=== PATIENT | female | born 1970 | race Hispanic/Latino ===

== ENCOUNTER 2018-12-03 21:02 | Emergency (ER) | payer OTHER ==
[~2018-12-03 21:02] MED LIST: HYDROCODONE PO; OLME1TAB28 PO
[2018-12-03 21:23] LABS: BASOPHILS % (AUTO) 0.7 % (0.0-5.0); EOSINOPHILS % (AUTO) 3.4 % (0.0-8.0); HEMATOCRIT 40.8 % (36-48); LYMPHOCYTES % (AUTO) 30.4 % (21.0-51.0); MEAN CORPUSCULAR HEMOGLOBIN 28.7 pg (27.0-33.0); MEAN CORPUSCULAR VOLUME 87.1 fL (79-99); MONOCYTES % (AUTO) 4.5 % (3.0-13.0); PLATELET COUNT (AUTO) 293 K/uL (130-400); RED BLOOD CELL COUNT(AUTO) 4.68 MIL/uL (4.00-5.50); RED CELL DISTRIBUTION WIDTH 13.3 % (11.0-15.5)
[2018-12-03 21:33] LABS: CREATININE 1.3 mg/dL (0.5-1.5); POTASSIUM 3.3 mmol/L (3.5-5.1)
[2018-12-03] MEDS ORDERED: DiphenhydrAMINE HCL 50 MG/ML VIAL ONE (21:34)
[2018-12-03] MEDS ORDERED: ASPIRIN 325 MG TABLET ONE (21:34)
[2018-12-03 21:40] LABS: BILIRUBIN,TOTAL 0.3 mg/dL (0.2-1.0); TOTAL PROTEIN, SERUM 7.6 g/dL (6.0-8.3)
[2018-12-03] MEDS ORDERED: SODIUM CHLORIDE 0.9% 1000ML 1,000 ML IV ONE (22:48)
[2018-12-04 00:58] LABS: APPEARANCE,URINE Clear (CLEAR); BILIRUBIN,URINE Negative (NEGATIVE); COLOR,URINE Yellow (YELLOW); GLUCOSE, URINE (UA) Negative (NEGATIVE); KETONES,URINE Trace mg/dL (NEGATIVE); LEUKOCYTE ESTERASE ,URINE Trace (NEGATIVE); NITRATE,URINE Negative (NEGATIVE); OCCULT BLOOD,URINE Nonhemolyzed Trace (NEGATIVE); PROTEIN,URINE Negative (NEGATIVE)
[2018-12-04 01:01] LABS: HCG,QUAL RESULT NEGATIVE (NEGATIVE)
[2018-12-04 01:11] LABS: BACTERIA,URINE Few /HPF (None Seen); RBC,URINE 0-1 /HPF (0-1)
[2018-12-04 01:12] LABS: MUCUS,URINE Moderate LPF (None Seen); SQUAMOUS EPITHELIAL CELL,UR 0-2 /HPF (0-2)
[2018-12-04] MEDS ORDERED: IOHEXOL-350 75 ML VIAL IV ONE (01:26)
[2018-12-04 01:34] LABS: AMPHET/METH SCREEN,URINE NEGATIVE (NEGATIVE); BARBITURATE SCREEN, URINE NEGATIVE (NEGATIVE); BENZODIAZEPINES SCREEN,URINE NEGATIVE (NEGATIVE); CANNABINOID SCREEN,URINE POSITIVE (NEGATIVE); COCAINE SCREEN,URINE POSITIVE (NEGATIVE); OPIATE SCREEN,URINE NEGATIVE (NEGATIVE); PHENCYCLIDINE SCREEN,URINE NEGATIVE (NEGATIVE)
== END 2018-12-04 02:20 | disposition home or self-care (01) ==
LOC: EDH 21:02
DX: R07.89 Other chest pain (principal); R06.4 Hyperventilation; R42 Dizziness and giddiness; I10 Essential (primary) hypertension; Z90.710 Acquired absence of both cervix and uterus
CPT/HCPCS: 36415; 71046; 71275; 80053; 80305; 81001; 81025; 82550; 84484 ×2; 85025; 85378; 93005 ×2; 96361; 96374; 99285; J1200; J7030; Q9967

== ENCOUNTER 2023-06-30 22:38 | Inpatient (IN) | payer OTHER ==
[~2023-06-30] VITALS: Ht 152.4 cm; Wt 63.9 kg
[~2023-06-30 22:38] MED LIST changes: -OLME1TAB28 PO; +[UNRECOGNIZED DRUG - CODE] PO
[2023-06-30 23:06] LABS: BASOPHILS # (AUTO) 0.02 K/uL (0.00-0.20); BASOPHILS % (AUTO) 0.2 % (0.0-5.0); EOSINOPHILS # (AUTO) 0.16 K/uL (0.00-0.70); EOSINOPHILS % (AUTO) 1.5 % (0.0-8.0); HEMATOCRIT 38.5 % (36-48); IMMATURE GRANULOCYTE ABSOLUTE 0.04 K/uL (0-1); LYMPHOCYTES # (AUTO) 2.4 K/uL (1.0-4.8); MEAN CORPUSCULAR HEMOGLOBIN 27.7 pg (27.0-33.0); MEAN CORPUSCULAR HGB CONC 33.5 g/dL (32.0-36.0); MEAN CORPUSCULAR VOLUME 82.6 fL (79-99); MONOCYTES # (AUTO) 0.5 K/uL (0.1-1.0); MONOCYTES % (AUTO) 4.3 % (3.0-13.0); NEUTROPHILS # (AUTO) 7.7 K/uL (1.8-7.7); NEUTROPHILS % (AUTO) 71.6 % (40.0-77.0); PLATELET COUNT (AUTO) 344 K/uL (130-400); RED BLOOD CELL COUNT(AUTO) 4.66 MIL/uL (4.00-5.50); RED CELL DISTRIBUTION WIDTH 12.9 % (11.0-15.5); WHITE BLOOD COUNT (AUTO) 10.7 K/uL (4.8-10.8)
[2023-06-30] MEDS: PANTOPRAZOLE 40 MG/VIAL IVP ONE (23:08)
[2023-06-30] MEDS: ONDANSETRON 4MG INJ IVP ONE (23:08)
[2023-06-30] MEDS: MORPHINE 2 MG SYG IVP ONE (23:08)
[2023-06-30] MEDS: KETOROLAC 30MG VIAL (30MG/ML) IVP ONE (23:08)
[2023-06-30] MEDS: 0.9%NACL 1000ML 1,000 ML IV ONE (23:08)
[2023-06-30] MEDS: ASPIRIN 325MG TAB PO ONE (23:09)
[2023-06-30] MEDS: DICYCLOMINE 20MG (10MG/ML) AMP IM ONE (23:09)
[2023-06-30 23:34] LABS: B-TYPE NATRIURETIC PEPTIDE 9 pg/mL (0-100)
[2023-06-30 23:41] LABS: ALBUMIN 3.5 g/dL (3.5-5.0); BILIRUBIN,TOTAL 0.3 mg/dL (0.2-1.0); CREATININE 0.9 mg/dL (0.5-1.5); MAGNESIUM 1.7 mg/dL (1.80-2.40); TOTAL PROTEIN, SERUM 7.7 g/dL (6.0-8.3)
[2023-06-30 23:42] LABS: POTASSIUM 2.9 mmol/L (3.5-5.1)
[2023-06-30] MEDS ORDERED: IOHEXOL-350 75 ML VIAL IV ONE (23:46)
[2023-06-30] MEDS: ZOSYN 3.375GM +NS 50ML IV SCH (23:50)
[2023-07-01] VITALS (7 sets, daily range): BP systolic 149–190; BP diastolic 91–114; PULSE 58–88; RESP 16–18; O2SAT 99
[2023-07-01] MEDS: POTASSIUM BICARB/CIT AC 25 MEQ TABLET.EFF PO ONE (00:21)
[2023-07-01] MEDS: KETOROLAC 15MG/ML VIAL (15MG/ML) IV ONE (00:21)
[2023-07-01] MEDS: MORPHINE 2 MG SYG IVP ONE (00:21)
[2023-07-01 00:41] LABS: APPEARANCE,URINE CLOUDY (CLEAR); BILIRUBIN,URINE NEGATIVE (NEGATIVE); COLOR,URINE LIGHT-YELLOW (YELLOW); GLUCOSE, URINE (UA) NEGATIVE (NEGATIVE); KETONES,URINE 5 mg/dL (NEGATIVE); LEUKOCYTE ESTERASE ,URINE NEGATIVE Leu/uL (NEGATIVE); NITRATE,URINE NEGATIVE (NEGATIVE); PH,URINE 8.5 (5.0-8.0); PROTEIN,URINE NEGATIVE (NEGATIVE); UROBILINOGEN,URINE 0.2 mg/dL (0.2-1.0)
[2023-07-01 00:45] LABS: ADD UA MICROSCOPIC YES; HCG,QUALITATIVE URINE NEGATIVE (NEGATIVE)
[2023-07-01 00:48] LABS: BACTERIA,URINE RARE /HPF (None Seen); MUCUS,URINE RARE LPF (None Seen); SQUAMOUS EPITHELIAL CELL,UR RARE /HPF (0-2); WBC,URINE 0-1 /HPF (0-1)
[2023-07-01 00:49] LABS: AMPHET/METH SCREEN,URINE NEGATIVE (NEGATIVE); BARBITURATE SCREEN, URINE NEGATIVE (NEGATIVE); BENZODIAZEPINES SCREEN,URINE NEGATIVE (NEGATIVE); CANNABINOID SCREEN,URINE POSITIVE (NEGATIVE); COCAINE SCREEN,URINE POSITIVE (NEGATIVE); OPIATE SCREEN,URINE NEGATIVE (NEGATIVE); PHENCYCLIDINE SCREEN,URINE NEGATIVE (NEGATIVE)
[2023-07-01] MEDS ORDERED: POTASSIUM CHLORIDE 20MEQ/100ML 100 ML IV PRN (01:30)
[2023-07-01] MEDS: ZOSYN 3.375GM +NS 50ML IV SCH (01:30)
[2023-07-01] MEDS: LACTATED RINGERS 1000ML 1,000 ML IV SCH (01:40)
[2023-07-01] MEDS ORDERED: NITROGLYCERIN 0.4 MG SL TAB SL PRN (02:00)
[2023-07-01] MEDS: MAGNESIUM 2GM PREMIX 50ML 50 ML IV PRN (02:43)
[2023-07-01 04:28] LABS: BASOPHILS # (AUTO) 0.03 K/uL (0.00-0.20); BASOPHILS % (AUTO) 0.2 % (0.0-5.0); EOSINOPHILS # (AUTO) 0.01 K/uL (0.00-0.70); EOSINOPHILS % (AUTO) 0.1 % (0.0-8.0); IMMATURE GRANULOCYTE ABSOLUTE 0.06 K/uL (0-1); LYMPHOCYTES # (AUTO) 1.5 K/uL (1.0-4.8); LYMPHOCYTES % (AUTO) 10.7 % (21.0-51.0); MEAN CORPUSCULAR HEMOGLOBIN 27.4 pg (27.0-33.0); MEAN CORPUSCULAR HGB CONC 31.8 g/dL (32.0-36.0); MEAN CORPUSCULAR VOLUME 86.2 fL (79-99); MONOCYTES # (AUTO) 0.5 K/uL (0.1-1.0); MONOCYTES % (AUTO) 3.5 % (3.0-13.0); NEUTROPHILS # (AUTO) 11.7 K/uL (1.8-7.7); NEUTROPHILS % (AUTO) 85.1 % (40.0-77.0); PLATELET COUNT (AUTO) 299 K/uL (130-400); RED BLOOD CELL COUNT(AUTO) 4.41 MIL/uL (4.00-5.50); RED CELL DISTRIBUTION WIDTH 13.1 % (11.0-15.5); WHITE BLOOD COUNT (AUTO) 13.8 K/uL (4.8-10.8)
[2023-07-01 04:42] LABS: HEMOGLOBIN A1C 6.1 % (4.0-6.0)
[2023-07-01 04:45] LABS: INR <= 0.93 (0.85-1.15); PROTHROMBIN TIME 10.2 SEC (9.6-11.6)
[2023-07-01 04:47] LABS: PARTIAL THROMBOPLASTIN TIME 29.3 SEC (26.3-35.5)
[2023-07-01 04:57] LABS: ALBUMIN 3.4 g/dL (3.5-5.0); BILIRUBIN,TOTAL 0.4 mg/dL (0.2-1.0); CREATININE 0.7 mg/dL (0.5-1.5); MAGNESIUM 2.5 mg/dL (1.80-2.40); POTASSIUM 3.5 mmol/L (3.5-5.1); TOTAL PROTEIN, SERUM 7.4 g/dL (6.0-8.3)
[2023-07-01] MEDS: MORPHINE 2 MG SYG IVP PRN (05:49)
[2023-07-01] MEDS: ONDANSETRON 4MG INJ IV PRN (06:19)
[2023-07-01] MEDS: FAMOTIDINE 20MG VIAL IV SCH (08:50)
[2023-07-02] VITALS (7 sets, daily range): BP systolic 128–158; BP diastolic 83–99; PULSE 82–101; RESP 16–18; O2SAT 97–100
[2023-07-02 04:40] LABS: BASOPHILS # (AUTO) 0.02 K/uL (0.00-0.20); BASOPHILS % (AUTO) 0.2 % (0.0-5.0); EOSINOPHILS # (AUTO) 0.45 K/uL (0.00-0.70); EOSINOPHILS % (AUTO) 4.1 % (0.0-8.0); HEMATOCRIT 40.8 % (36-48); IMMATURE GRANULOCYTE ABSOLUTE 0.06 K/uL (0-1); MEAN CORPUSCULAR HEMOGLOBIN 27.2 pg (27.0-33.0); MEAN CORPUSCULAR HGB CONC 32.1 g/dL (32.0-36.0); MEAN CORPUSCULAR VOLUME 84.6 fL (79-99); MONOCYTES % (AUTO) 9.2 % (3.0-13.0); NEUTROPHILS # (AUTO) 7.5 K/uL (1.8-7.7); PLATELET COUNT (AUTO) 303 K/uL (130-400); RED BLOOD CELL COUNT(AUTO) 4.82 MIL/uL (4.00-5.50); RED CELL DISTRIBUTION WIDTH 13.2 % (11.0-15.5); WHITE BLOOD COUNT (AUTO) 11.1 K/uL (4.8-10.8)
[2023-07-02 04:51] LABS: ALBUMIN 3.1 g/dL (3.5-5.0); BILIRUBIN,TOTAL 0.8 mg/dL (0.2-1.0); CREATININE 0.8 mg/dL (0.5-1.5); POTASSIUM 3.5 mmol/L (3.5-5.1); TOTAL PROTEIN, SERUM 7.2 g/dL (6.0-8.3)
[2023-07-02] MEDS: KCL 20 MEQ ERTAB PO PRN (17:01)
[2023-07-03] VITALS (28 sets, daily range): BP systolic 109–154; BP diastolic 64–96; PULSE 69–102; RESP 12–20; O2SAT 95–96
[2023-07-03] MEDS: ACETAMINOPHEN 325 MG TAB PO PRN (00:23)
[2023-07-03] MEDS ORDERED: ONDANSETRON 4MG INJ ONE (11:43)
[2023-07-03] MEDS ORDERED: DEXAMETHASONE SOD PHOSPHATE 10MG/ML 1ML VIAL ONE (11:43)
[2023-07-03] MEDS ORDERED: SUCCINYLCHOLINE CHLORIDE 20 MG/ML 10 ML VIAL ONE (11:43)
[2023-07-03] MEDS ORDERED: LIDOCAINE PF 100MG/5ML (2%) SYRINGE 5ML ONE (11:43)
[2023-07-03] MEDS ORDERED: NEOSTIGMINE METHYLSULFATE 1MG/ML IV ONE (11:44)
[2023-07-03] MEDS ORDERED: GLYCOPYRROLATE 0.2 MG/ML 5 ML VIAL ONE (11:44)
[2023-07-03] MEDS ORDERED: PROPOFOL 10 MG/ML 20ML VIAL IV ONE ×2 (11:44→12:36)
[2023-07-03] MEDS ORDERED: FENTANYL CITRATE PF 50 MCG/1 ML 2ML VIAL ONE ×2 (11:44→12:20)
[2023-07-03] MEDS ORDERED: MIDAZOLAM HCL 1 MG/ML 2ML VIAL ONE (11:44)
[2023-07-03] MEDS ORDERED: ROCURONIUM BROMIDE 10MG/1ML 5ML VL ONE (11:44)
[2023-07-03] MEDS: BUPIVACAINE/PF 0.5% 30ML VIAL ONE (12:25)
[2023-07-03] MEDS: LIDOCAINE HCL 1% 20 ML VIAL ONE (12:25)
[2023-07-03] MEDS: LACTATED RINGERS 1000ML 1,000 ML IV ONE (12:32)
[2023-07-03] MEDS ORDERED: MEPERIDINE-PF 25 MG/ML SYG ONE (12:49)
[2023-07-04 04:00] VITALS: BP 150/85; PULSE 73; RESP 18
[2023-07-04 06:13] LABS: BASOPHILS # (AUTO) 0.02 K/uL (0.00-0.20); BASOPHILS % (AUTO) 0.2 % (0.0-5.0); HEMATOCRIT 32.4 % (36-48); IMMATURE GRANULOCYTE ABSOLUTE 0.05 K/uL (0-1); LYMPHOCYTES # (AUTO) 1.3 K/uL (1.0-4.8); LYMPHOCYTES % (AUTO) 10.9 % (21.0-51.0); MEAN CORPUSCULAR HEMOGLOBIN 27.4 pg (27.0-33.0); MEAN CORPUSCULAR VOLUME 82.9 fL (79-99); MONOCYTES # (AUTO) 0.5 K/uL (0.1-1.0); MONOCYTES % (AUTO) 4.4 % (3.0-13.0); NEUTROPHILS # (AUTO) 9.9 K/uL (1.8-7.7); NEUTROPHILS % (AUTO) 84.1 % (40.0-77.0); PLATELET COUNT (AUTO) 342 K/uL (130-400); RED BLOOD CELL COUNT(AUTO) 3.91 MIL/uL (4.00-5.50); RED CELL DISTRIBUTION WIDTH 12.7 % (11.0-15.5); WHITE BLOOD COUNT (AUTO) 11.8 K/uL (4.8-10.8)
[2023-07-04 06:54] LABS: ALBUMIN 2.6 g/dL (3.5-5.0); BILIRUBIN,TOTAL 0.5 mg/dL (0.2-1.0); CREATININE 0.7 mg/dL (0.5-1.5); MAGNESIUM 1.8 mg/dL (1.80-2.40); POTASSIUM 3.6 mmol/L (3.5-5.1); TOTAL PROTEIN, SERUM 6.7 g/dL (6.0-8.3)
[2023-07-04 08:00] VITALS: BP 140/87; PULSE 76; RESP 20; O2SAT 98
[2023-07-04] MEDS ORDERED: ACETAMINOPHEN WITH CODEINE 1 TAB TAB PO PRN (08:00)
[2023-07-04] MEDS: SIMETHICONE 80 MG TAB.CHEW PO SCH (08:36)
[2023-07-04 12:00] VITALS: BP 149/82; PULSE 85; RESP 16
== END 2023-07-04 15:35 | disposition home or self-care (01) | DRG 418 ==
LOC: EDH 22:38 → EDHIP 22:39 → 3AH 07-01 02:09
PROVIDERS: ADMIT Internal Medicine; ATTEND Internal Medicine
PROC: 0FT44ZZ Resection of Gallbladder, Percutaneous Endoscopic Approach (ICD-10-PCS; principal; 2023-07-03 12:07)
DX: K80.00 Calculus of gallbladder with acute cholecystitis without obstruction (principal); R71.0 Precipitous drop in hematocrit; D18.03 Hemangioma of intra-abdominal structures; E87.6 Hypokalemia; F17.200 Nicotine dependence, unspecified, uncomplicated; E86.0 Dehydration; K82.8 Other specified diseases of gallbladder; Z82.49 Family history of ischemic heart disease and other diseases of the circulatory system; Z90.710 Acquired absence of both cervix and uterus; Z90.721 Acquired absence of ovaries, unilateral
CPT/HCPCS: 36415; 71045; 74177; 76705; 78226; 80053; 80061; 80305; 81001; 81025; 82550; 83036; 83690; 83735; 83880; 84132; 84145; 84484; 85025; 85610; 85651; 85730; 86140; 88304; 93005; 99291; A9537; C9113; G0378; J0330; J0500; J1100; J1885; J2001; J2175; J2250; J2270; J2405; J2543; J2704; J2710; J3010; J3475; J3490; J7030; J7120; Q9967; A4215; A4216; A4221; A4222; A4223; A4600; A4649; A4930; A6206; C1769; J0665